=== PATIENT | female | born 1965 | race Caucasian/White ===

== ENCOUNTER 2018-02-04 10:12 | Emergency (ER) | payer BC ==
[2018-02-04 10:23] VITALS: BMI 23.6
[2018-02-04] MEDS ORDERED: morphine CARPU-JECT 4 MG/1 ML DISP.SYRIN IVPUSH ONE (11:17)
[2018-02-04] MEDS ORDERED: SODIUM CHLORIDE 0.9% 1000 ML INFUS.BAG IV ONE (11:17)
[2018-02-04] MEDS ORDERED: ONDANSETRON 4 MG/2 ML VIAL IVPUSH ONE (11:18)
--- NOTE | 2018-02-04 11:20 | PDOC ---
History of Present Illness - General History Source: Patient Exam Limitations: No Limitations - History of Present Illness Initial Comments: 02/04/18 11:22 The patient is a 52-year-old female, with a significant past medical history of hypothyroidism, who presents to the ED with nausea, vomiting and left lower quadrant pain that began at 5:36AM this morning. The patient describes the pain as constant, [id number], with waves of worsening pain, and radiation to her back. She reports vomiting 3-4x today, last episode was at 9AM. She denies any history of kidney stones, ovarian cysts, or diverticulitis. She denies any recent sick contacts. The patient took 2 Advil tablets this morning at 6AM. Patient also reports associated chills. She denies any fever or diarrhea. She denies any shortness of breath or chest pain. She denies any dysuria, frequency, urgency, or hesitancy. Allergies: NKA PCP: Dr. Edmond Weldon <Katelynn Christina - Last Filed: 02/04/18 14:12> <Debbie Serra - Last Filed: 02/04/18 14:58> - General Chief Complaint: Pain Stated Complaint: PAIN/ LT SIDE, ABD Past History <Katelynn Christina - Last Filed: 02/04/18 14:12> - Past Medical History Anemia: Yes Asthma: No Cancer: No Cardiac Disorders: No CVA: No COPD: No Dementia: No Diabetes: No HTN: No Seizures: No Thyroid Disease: Yes (hypo) Other medical history: HYPOTHYROID - Surgical History Appendectomy: Yes Cholecystectomy: Yes - Suicide/Smoking/Psychosocial Hx Smoking History: Former smoker Have you smoked in the past 12 months: No If you are a former smoker, when did you quit?: 2002 Information on smoking cessation initiated: No Hx Alcohol Use: No Drug/Substance Use Hx: No Substance Use Type: None <Debbie Serra - Last Filed: 02/04/18 14:58> - Past Medical History Allergies/Adverse Reactions: Allergies Allergy/AdvReac Type Severity Reaction Status Date / Time No Known Allergies Allergy Verified 02/04/18 10:18 Home Medications: Ambulatory Orders Levothyroxine [Synthroid -] 88 mcg PO DAILY 12/22/15 Cephalexin [Keflex] 500 mg PO TID #21 capsule MDD 3 02/04/18 Ibuprofen [Motrin -] 600 mg PO TID PRN #90 tablet 02/04/18 Oxycodone HCl/Acetaminophen [Percocet 5-325 mg Tablet] 1 tab PO Q6H PRN #10 tablet MDD 4 02/04/18 Tamsulosin HCl [Flomax] 0.4 mg PO HS #10 cap.er.24h 02/04/18 Review of Systems - Review of Systems Able to Perform ROS?: Yes Comments:: 02/04/18 11:28 GENERAL/CONSTITUTIONAL: (+)Chills. No fever. No weakness. HEAD, EYES, EARS, NOSE AND THROAT: No change in vision. No ear pain or discharge. No sore throat. CARDIOVASCULAR: No chest pain or shortness of breath. RESPIRATORY: No cough, wheezing, or hemoptysis. GASTROINTESTINAL: (+)Left lower quadrant pain, nausea, and vomiting. No diarrhea or constipation. GENITOURINARY: No dysuria, frequency, or change in urination. MUSCULOSKELETAL: (+)Back pain. No joint swelling or pain. No neck pain. SKIN: No rash NEUROLOGIC: No headache, vertigo, loss of consciousness, or change in strength/ sensation. ENDOCRINE: No increased thirst. No abnormal weight change. HEMATOLOGIC/LYMPHATIC: No anemia, easy bleeding, or history of blood clots. ALLERGIC/IMMUNOLOGIC: No hives or skin allergy. <Katelynn Christina - Last Filed: 02/04/18 14:12> *Physical Exam - Vital Signs Last Vital Signs Temp Pulse Resp BP Pulse Ox 98.5 F 65 20 109/76 97 02/04/18 10:18 02/04/18 10:18 02/04/18 10:18 02/04/18 10:18 02/04/18 10:18 - Physical Exam Comments: 02/04/18 11:30 GENERAL: Awake, alert, and fully oriented, in no acute distress HEAD: No signs of trauma EYES: PERRLA, EOMI, sclera anicteric, conjunctiva clear ENT: Auricles normal inspection, nares patent, oropharynx clear without exudates. Moist mucosa. NECK: Normal ROM, supple, no lymphadenopathy, JVD, or masses LUNGS: Breath sounds equal, clear to auscultation bilaterally. No wheezes, and no crackles HEART: Regular rate and rhythm, normal S1 and S2, no murmurs, rubs or gallops ABDOMEN: (+)Left lower quadrant tenderness. Soft, normoactive bowel sounds. No guarding, no rebound. No masses MSK: No CVA tenderness. EXTREMITIES: Normal range of motion, no edema. No clubbing or cyanosis. No cords, erythema, or tenderness NEUROLOGICAL: Alert and oriented x 3. Moves all extremities. Face is symmetric. SKIN: Warm, Dry, normal turgor, no rashes or lesions noted <Katelynn Christina - Last Filed: 02/04/18 14:12> - Vital Signs Last Vital Signs Temp Pulse Resp BP Pulse Ox 98.5 F 65 20 109/76 97 02/04/18 10:18 02/04/18 10:18 02/04/18 10:18 02/04/18 10:18 02/04/18 10:18 <Debbie Serra - Last Filed: 02/04/18 14:58> Procedures - Bedside Ultrasound Other: Renal <Debbie Serra - Last Filed: 02/04/18 14:58> ED Treatment Course - LABORATORY CBC & Chemistry Diagram: 02/04/18 11:19 02/04/18 11:19 <Katelynn Christina - Last Filed: 02/04/18 14:12> - LABORATORY CBC & Chemistry Diagram: 02/04/18 11:19 02/04/18 11:19 <Debbie Serra - Last Filed: 02/04/18 14:58> Medical Decision Making - Medical Decision Making 02/04/18 14:12 Dr. Banks was paged and notified via phone service. <Katelynn Christina - Last Filed: 02/04/18 14:12> - Medical Decision Making 02/04/18 11:18 52-year-old female with a past medical history here today complaining of abdominal pain nausea and vomiting. Patient describes left lower quadrant pain which is constant but has episodes of worsening severity. It's sharp like a knife radiating to her left flank. Started early a.m. around 6 AM. Has had 3-4 episodes of nonbloody nonbilious emesis. No fevers chills. No urinary complaints. No known history of diverticulitis or diverticulosis and no prior kidney stones no known history of ovarian cysts. Patient has never had similar pain in the past no change to her stools no previous abdominal surgeries Abdominal exam is noted for the left lower quadrant tenderness no rebound no guarding no CVA tenderness Differential diagnosis includes renal colic, UTI or pyelo-, diverticulitis, ovarian cyst. Plan focused ED renal ultrasound followed by CT pending ultrasound results. CBC, CMP, and urinalysis to rule out UTI. Pain control and antiemetics with IV hydration 02/04/18 11:52 Focused ED renal ultrasound, indication left flank pain Bilateral kidneys scanned into planes, sagittal and transverse. Right kidney is normal no hydronephrosis left kidney mild hydronephrosis, Bladder is nondistended Impression: Mild left-sided hydronephrosis 02/04/18 14:22 pt feelingimproved following toradol. 6 mm stone left mid prox ureter. mild to mod hydro. 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 will see pt tomorrow. mild inflammatory changes in urine, will treat prophylactically with abx, no fever. ceftriaxone. given, dc wih keflex <Debbie Serra - Last Filed: 02/04/18 14:58> *DC/Admit/Observation/Transfer - Attestations Scribe Attestion: 02/04/18 11:32 Documentation prepared by Katelynn Christina, acting as medical services coordinator for Debbie Serra MD. <Katelynn Christina - Last Filed: 02/04/18 14:12> - Discharge Dispostion Decision to Admit order: No <Debbie Serra - Last Filed: 02/04/18 14:58> Diagnosis at time of Disposition: Renal colic on left side - Discharge Dispostion Disposition: HOME Condition at time of disposition: Improved - Prescriptions Prescriptions: Cephalexin [Keflex] 500 mg PO TID #21 capsule MDD 3 Ibuprofen [Motrin -] 600 mg PO TID PRN #90 tablet PRN Reason: Pain Oxycodone HCl/Acetaminophen [Percocet 5-325 mg Tablet] 1 tab PO Q6H PRN #10 tablet MDD 4 PRN Reason: Pain Tamsulosin HCl [Flomax] 0.4 mg PO HS #10 cap.er.24h - Referrals Referrals: Edmond Weldon MD [Primary Care Provider] - - Patient Instructions Printed Discharge Instructions: Kidney Stones -- Adult Additional Instructions: you should take flomax 0.4 mg each night. drink plenty of fluids. you can take motrin 600 mg every 8 hrs as needed for pain. for intractable pain not resolved with motrin, you can take percocet one every 6 hrs as needed for pain. Take keflex 500 mg three times daily x 7 days. follow up with dr. banks (urologist ) tomorrow. call to schedule in early am [phone]. return for severe worsening pain, inability to urinate, intractable vomiting, or fever or any concerns. - Post Discharge Activity
[2018-02-04] MEDS ORDERED: morphine SULFATE 4 MG/ML VIAL ONE (11:21)
[2018-02-04] MEDS ORDERED: ONDANSETRON 4 MG/2 ML VIAL ONE (11:21)
[2018-02-04 11:39] LABS: BASO % 0.4 % (0-2.0); EOS % 0.1 % (0-4.5); HEMATOCRIT 42.3 % (32.4-45.2); HEMOGLOBIN 14.3 GM/dL (10.7-15.3); LYMPH % 3.8 % (8-40); MCH 32.4 pg (25.7-33.7); MCHC 33.9 g/dl (32.0-36.0); MEAN CELL VOLUME 95.5 fl (80-96); MEAN PLT VOLUME 9.4 fl (7.5-11.1); MONO % 2.6 % (3.8-10.2); NEUT % 93.1 % (42.8-82.8); PLATELET COUNT 216 K/MM3 (134-434); RBC 4.43 M/mm3 (3.60-5.2); RDW 12.8 % (11.6-15.6); WHITE BLOOD COUNT 13.7 K/mm3 (4.0-10.0)
[2018-02-04 12:04] LABS: URINE APPEARANCE SLCLOUDY; URINE BILIRUBIN NEGATIVE (<2.0 mg/dL); URINE BLOOD 1+ (NEGATIVE); URINE COLOR YELLOW; URINE GLUCOSE (UA) NEGATIVE (NEGATIVE); URINE KETONE NEGATIVE (NEGATIVE); URINE LEUK ESTERASE NEGATIVE (NEGATIVE); URINE NITRITE NEGATIVE (NEGATIVE); URINE UROBILINOGEN NEGATIVE mg/dL (0.2-1.0)
[2018-02-04 12:06] LABS: ANION GAP 6 (8-16); BILIRUBIN,TOTAL 0.4 mg/dL (0.2-1.0); BLOOD UREA NITROGEN 23 mg/dL (7-18); CHLORIDE 108 mmol/L (98-107); CO2 25 mmol/L (21-32); GLUCOSE,RANDOM 133 mg/dL (74-106); SGOT/AST 21 U/L (15-37); SODIUM 139 mmol/L (136-145); TOT PROT 7.3 g/dl (6.4-8.2)
[2018-02-04 12:18] LABS: URINE PROTEIN 1+ (NEGATIVE)
[2018-02-04 12:19] LABS: EPI CELLS RARE /HPF (FEW); URINE MUCUS FEW
[2018-02-04 12:34] LABS: ALK PHOS 86 U/L (45-117); SGPT/ALT 32 U/L (12-78)
[2018-02-04] MEDS ORDERED: KETOROLAC TROMETHAMINE 30 MG/1 ML VIAL IVPUSH ONE (13:00)
[2018-02-04] MEDS ORDERED: KETOROLAC TROMETHAMINE 30 MG/1 ML VIAL ONE (13:27)
[2018-02-04] MEDS ORDERED: CEFTRIAXONE 1,000 MG in DEXTROSE 5%-WATER - 50 ML IVPB ONE (14:32)
[2018-02-04] MEDS ORDERED: CEFTRIAXONE 1 GM/50 ML BAG ONE (14:36)
[2018-02-04 15:08] VITALS: BP 114/78; PULSE 70; TEMP 97.8
[2018-02-04 15:32] LABS: PLATELET ESTIMATE ADEQUATE
== END 2018-02-04 15:00 | disposition home or self-care (01) ==
LOC: JER 10:12
PROC: 3E03329 Introduction of Other Anti-infective into Peripheral Vein, Percutaneous Approach (ICD-10-PCS; principal; 2018-02-04)
PROC: 3E0333Z Introduction of Anti-inflammatory into Peripheral Vein, Percutaneous Approach (ICD-10-PCS; 2018-02-04)
PROC: 3E033GC Introduction of Other Therapeutic Substance into Peripheral Vein, Percutaneous Approach (ICD-10-PCS; 2018-02-04)
PROC: 3E033NZ Introduction of Analgesics, Hypnotics, Sedatives into Peripheral Vein, Percutaneous Approach (ICD-10-PCS; 2018-02-04)
PROC: 3E0337Z Introduction of Electrolytic and Water Balance Substance into Peripheral Vein, Percutaneous Approach (ICD-10-PCS; 2018-02-04)
DX: N23 Unspecified renal colic (principal); E03.9 Hypothyroidism, unspecified; Z87.891 Personal history of nicotine dependence
CPT/HCPCS: 36415; 74176; 80053; 81003; 81015; 85025; 99283-25; 99284-25; J7030